=== PATIENT | female | born 1985 | race Caucasian/White ===

== ENCOUNTER 2019-01-28 07:48 | Inpatient (IN) ==
[2019-01-28] MEDS ORDERED: OXYTOCIN 30 UNITS/500 ML BAG IV PRN ×2 (08:18→15:23)
--- NOTE | 2019-01-28 08:25 | History & Physical Report ---
Date of Service January 28, 2019 Assessment & Plan (1) Normal labor: IUP at 40 5/7 weeks in labor Please see orders for further directions. History of Present Illness Primary Care Provider: NO PCP Patient is a 33 yo white female EDC 01/22/19 who presents at 40 5/7 weeks with bloody show & regular contractions. GBS (-). has been only complicated by post dates . blood type O negative. Allergies Allergy/AdvReac Type Severity Reaction Status Date / Time sunflower seed Allergy Severe ANAPHYLAXIS Verified 01/28/19 07:56 Sulfa (Sulfonamide Allergy Unknown . Verified 01/28/19 07:56 Antibiotics) Home Medications Home Medications Medication Instructions Recorded Confirmed Type [place]-3 1,000 mg PO DAILY 01/28/19 01/28/19 History PNV cmb#95-ferrous fumarate-FA 1 tab PO DAILY 01/28/19 01/28/19 History [] Vitamin D3 1,000 unit PO DAILY 01/28/19 01/28/19 History docusate sodium [Colace] 100 mg PO BID 01/28/19 01/28/19 History ferrous sulfate [iron] 325 mg PO DAILY 01/28/19 01/28/19 History Patient History Social History Preferred Language: Estonian Print Buyer Required: No Beliefs That Will Affect Care: None marital status: Current Living Situation: Spouse Other Information That Helps Us Care for You: No Feels Safe at Home: Yes Smoking Status: Never smoker Hx Alcohol Use: No Hx Substance Use: No Review of Systems All systems reviewed & are unremarkable except as noted in HPI & below Physical Exam Constitutional: WD/WN, vitals as above Respiratory: normal respiratory effort, lungs clear to auscultation Cardiovascular: RRR, no murmur, no edema Gastrointestinal (Abdomen): normal bowel sounds, soft, nontender, no hep atosplenomegaly Genitourinary: OB Exam Abdomen: + vertex and + regular contractions (every 2-4 minutes) Manual OB Exam: + cervical dilation 4 cm, + cervical effacement 100%, + station 0 and + amniotic fluid OB Exam Monitor Tracing: + external FHT monitor used, + external uterine monitor used, + category I and + normal FHT variability
[2019-01-28 09:32] LABS: Hematocrit (blood only) 35.3 % (37-47); Hemoglobin 12.7 g/dL (12.0-16.0); Mean Corpuscular Volume 91.5 fL (80-100); Mean Platelet Volume 11.6 fL (7.4-10.4); Platelet Count 92 K/uL (130-400); Platelet Estimate Decreased (Normal); RDW Standard Deviation 43.3 fL (36.4-46.3); Red Blood Count 3.86 M/uL (4.2-5.4); White Blood Count 9.61 K/uL (4.8-10.8)
--- NOTE | 2019-01-28 10:17 | Labor Progress Brief Note ---
Date of Service January 28, 2019 Subjective Change of shift note: The patient is a 33-year-old 1 para 0 with an EDC of 22 January by dates and first trimester ultrasound who was admitted at 40+ weeks gestational age in active labor. Patient states the contractions began in the evening of 27 January and increased in intensity. She presented this a.m. for labor evaluation. The patient had had a benign course. Her blood type is O- , antibody negative, she received RhoGam on 30 October, she is hepatitis B negative, she had a normal 1 hour Glucola x2, she had a negative cell free DNA screening, and she had a negative third trimester beta strep culture Assessment & Plan (1) Normal labor: - heart rate tracing category 1 -We will see response to uterine activity with rupture of membranes -May require labor augmentation -All questions answered to the patient Physical Exam Genitourinary: Cervix: 4 cm 100% -2 station, artificial rupture of membranes for clear fluid Results & Data Vital Signs (Past 12 Hours) Vital Signs Temp Pulse Resp BP 01/28/19 09:38 36.8 C 73 18 112/70
[2019-01-28] MEDS ORDERED: ePHEDrine sulfate 50 MG/ML AMP ONE (10:49)
[2019-01-28] MEDS ORDERED: fentaNYL citrate 100 MCG/2 ML VIAL ONE (10:49)
[2019-01-28] MEDS ORDERED: BUPIVACAINE 0.25% 30 ML VIAL ONE (10:49)
[2019-01-28] MEDS ORDERED: fentaNYL 2MCG/ML ROPIV 1.25MG/ML 100 ML BAG EPI ONE (10:50)
[2019-01-28] MEDS: LACTATED RINGER'S 1,000 ML IV PRN ×2 (11:06→11:58)
--- NOTE | 2019-01-28 12:22 | Anesthesiology Consultation ---
Date of Service January 28, 2019 Assessment & Plan Chart Review Chart Review: Acceptable Risk for Labor Epidural Consults Requested none History Height/Weight Height: 5 ft 4 in Weight: 69.57 kg Allergies Allergy/AdvReac Type Severity Reaction Status Date / Time sunflower seed Allergy Severe ANAPHYLAXIS Verified 01/28/19 07:56 Sulfa (Sulfonamide Allergy Unknown . Verified 01/28/19 07:56 Antibiotics) Medications Home Medications Medication Instructions Recorded Confirmed Last Taken [place]-3 1,000 mg PO DAILY 01/28/19 01/28/19 01/27/19 08:00 PNV cmb#95-ferrous fumarate-FA 1 tab PO DAILY 01/28/19 01/28/19 01/27/19 08:00 [] Vitamin D3 1,000 unit PO DAILY 01/28/19 01/28/19 01/27/19 08:00 docusate sodium [Colace] 100 mg PO BID 01/28/19 01/28/19 01/27/19 08:00 ferrous sulfate [iron] 325 mg PO DAILY 01/28/19 01/28/19 01/27/19 08:00 Active Medications Generic Name Dose Route Start Last Admin Trade Name Freq PRN Reason Stop Dose Admin Lactated Ringer's 1,000 mls @ 125 mls/hr 01/28/19 08:18 01/28/19 11:58 Lr IV 01/30/19 08:17 125 mls/hr .Q8H PRN Administration L&D Protocol Protocol Past Medical History Medical History Constipation chronic constipation- takes colace 100mg BID H/O wisdom tooth extraction removed in 2015 Social History Smoking Status: Never smoker Hx Alcohol Use: No Hx Substance Use: No substance use type: does not use Physical Exam Vital Signs Last Vital Signs Temp 36.7 C 01/28/19 11:05 Pulse 76 01/28/19 12:19 Resp 18 01/28/19 09:38 BP 112/63 01/28/19 12:19 Pulse Ox 94 01/28/19 12:16
[2019-01-28] MEDS ORDERED: DiphenhydrAMINE HCL 50 MG/ML VIAL IV PRN (12:23)
[2019-01-28] MEDS ORDERED: fentaNYL 2MCG/ML ROPIV 1.25MG/ML 100 ML BAG EPI PRN (12:23)
[2019-01-28] MEDS ORDERED: NALOXONE HCL 1 MG in SODIUM CHLORIDE 0.9% 1000ML 1,000 ML IV PRN (12:23)
[2019-01-28] MEDS ORDERED: NALOXONE HCL 0.4 MG/1 ML VIAL/CARP IV PRN (12:23)
[2019-01-28] MEDS ORDERED: NALBUPHINE HCL INJ 10 MG/ML AMP IV PRN (12:23)
[2019-01-28] MEDS ORDERED: ePHEDrine sulfate 50 MG/ML AMP IV PRN (12:23)
--- NOTE | 2019-01-28 14:22 | Labor Progress Brief Note ---
Date of Service January 28, 2019 Subjective Comfortable with epidural, feeling pressure with ctx's Assessment & Plan (1) Normal labor: - tracing Cat II - will begin 2nd stage Physical Exam Physical Exam: Cervix: complete/ROT/(+)1-(+)2 Results & Data Vital Signs (Past 12 Hours) Vital Signs Temp Pulse Pulse Resp BP BP Pulse Ox 01/28/19 14:16 75 96 01/28/19 14:11 74 98/57 L 97 01/28/19 14:06 77 95 01/28/19 14:01 74 95 01/28/19 14:00 16 01/28/19 13:56 71 92/53 L 95 01/28/19 13:51 74 96 01/28/19 13:46 73 95 01/28/19 13:41 69 100/63 96 01/28/19 13:36 69 107/63 96 01/28/19 13:31 67 107/55 L 96 01/28/19 13:30 16 01/28/19 13:26 69 95 01/28/19 13:25 67 100/59 L 01/28/19 13:21 76 111/57 L 96 01/28/19 13:16 80 96 01/28/19 13:15 85 110/60 01/28/19 13:11 78 96 01/28/19 13:10 69 114/62 01/28/19 13:06 71 96 01/28/19 13:05 70 107/62 01/28/19 13:01 69 96 01/28/19 13:00 66 111/63 01/28/19 12:58 36.6 C 16 01/28/19 12:56 64 98 01/28/19 12:55 67 103/61 01/28/19 12:51 77 97 01/28/19 12:50 64 101/58 L 01/28/19 12:46 73 98 01/28/19 12:45 71 108/64 01/28/19 12:41 69 97 01/28/19 12:39 66 110/64 01/28/19 12:36 77 104/64 97 01/28/19 12:31 74 96 01/28/19 12:30 16 01/28/19 12:26 84 96 01/28/19 12:23 78 111/57 L 01/28/19 12:21 83 109/59 L 95 06/04/19 12:19 76 112/63 01/28/19 12:17 81 112/63 01/28/19 12:16 79 94 01/28/19 12:15 78 108/59 L 01/28/19 12:13 78 108/58 L 01/28/19 12:11 85 113/65 01/28/19 12:06 76 93 01/28/19 12:01 71 95 01/28/19 11:56 83 95 01/28/19 11:51 86 94 01/28/19 11:46 72 96 01/28/19 11:41 84 94 01/28/19 11:36 83 97 01/28/19 11:31 81 98 01/28/19 11:26 77 96 01/28/19 11:21 79 98 01/28/19 11:16 73 94 01/28/19 11:11 77 95 01/28/19 11:06 83 96 01/28/19 11:05 36.7 C 01/28/19 11:02 71 94 01/28/19 11:01 72 95 01/28/19 10:56 70 97 01/28/19 10:55 71 120/67 01/28/19 09:38 36.8 C 73 18 112/70
[2019-01-28] MEDS ORDERED: ACETAMINOPHEN 325 MG TAB PO PRN (15:23)
[2019-01-28] MEDS ORDERED: DIPHTHERIA/TETANUS/PERTUSSIS 0.5 ML SYR/VIAL IM ONE (15:23)
[2019-01-28] MEDS ORDERED: SUPERCREAM 0.870% 15 GM JAR EXT PRN (15:23)
[2019-01-28] MEDS ORDERED: ACETAMINOPHEN W/CODEINE #3 1 TAB PO PRN (15:23)
[2019-01-28] MEDS ORDERED: HYDROCORTISONE ACETATE 25 MG SUPP PR PRN (15:23)
[2019-01-28] MEDS ORDERED: BENZOCAINE 20% AER SPR 82.5 GM CAN EXT PRN (15:23)
[2019-01-28 15:58] LABS: Base Excess Cord Arterial Bld -3.7 mEq/L (-9-1.8); CO2 Cord Arterial Blood 48 mmHg (39.1-73.5); HCO3 Cord Arterial Blood 23 mmol/L (19.7-28.5)
--- NOTE | 2019-01-28 19:38 | Anesthesia Procedure Note ---
Date of Service January 28, 2019 Anesthesia Post Epidural Note Vital Signs Vital Signs: Temp Pulse Pulse Resp BP BP Pulse Ox 01/28/19 18:20 36.5 C 78 20 113/68 01/28/19 17:41 91 H 115/60 01/28/19 17:27 88 126/58 L 01/28/19 17:11 93 H 112/55 L 01/28/19 16:56 85 114/60 01/28/19 16:41 97 H 106/60 01/28/19 16:26 93 H 104/58 L 01/28/19 16:11 77 104/55 L 01/28/19 15:57 72 96/53 L 01/28/19 15:44 78 92/53 L 01/28/19 15:26 82 118/57 L 01/28/19 15:11 75 115/62 01/28/19 14:56 86 123/75 95 01/28/19 14:52 83 85 L 01/28/19 14:51 106 H 92 01/28/19 14:46 198 H 91 01/28/19 14:41 77 127/75 94 01/28/19 14:40 85 85 L 01/28/19 14:36 82 95 01/28/19 14:31 36.5 C 87 16 97 01/28/19 14:30 20 01/28/19 14:28 87 85 L 01/28/19 14:27 104 H 101/64 01/28/19 14:26 106 H 94 01/28/19 14:21 77 96 01/28/19 14:16 75 96 01/28/19 14:11 74 98/57 L 97 01/28/19 14:06 77 95 01/28/19 14:01 74 95 01/28/19 14:00 16 01/28/19 13:56 71 92/53 L 95 01/28/19 13:51 74 96 01/28/19 13:46 73 95 01/28/19 13:41 69 100/63 96 01/28/19 13:36 69 107/63 96 01/28/19 13:31 67 107/55 L 96 01/28/19 13:30 16 01/28/19 13:26 69 95 01/28/19 13:25 67 100/59 L 01/28/19 13:21 76 111/57 L 96 01/28/19 13:16 80 96 01/28/19 13:15 85 110/60 01/28/19 13:11 78 96 01/28/19 13:10 69 114/62 01/28/19 13:06 71 96 01/28/19 13:05 70 107/62 01/28/19 13:01 69 96 01/28/19 13:00 66 111/63 01/28/19 12:58 36.6 C 16 01/28/19 12:56 64 98 01/28/19 12:55 67 103/61 01/28/19 12:51 77 97 01/28/19 12:50 64 101/58 L 01/28/19 12:46 73 98 01/28/19 12:45 71 108/64 01/28/19 12:41 69 97 01/28/19 12:39 66 110/64 01/28/19 12:36 77 104/64 97 01/28/19 12:31 74 96 01/28/19 12:30 16 01/28/19 12:26 84 96 01/28/19 12:23 78 111/57 L 01/28/19 12:21 83 109/59 L 95 01/28/19 12:19 76 112/63 01/28/19 12:17 81 112/63 01/28/19 12:16 79 94 01/28/19 12:15 78 108/59 L 01/28/19 12:13 78 108/58 L 01/28/19 12:11 85 113/65 01/28/19 12:06 76 93 01/28/19 12:01 71 95 01/28/19 11:56 83 95 01/28/19 11:51 86 94 01/28/19 11:46 72 96 01/28/19 11:41 84 94 01/28/19 11:36 83 97 01/28/19 11:31 81 98 01/28/19 11:26 77 96 01/28/19 11:21 79 98 01/28/19 11:16 73 94 01/28/19 11:11 77 95 01/28/19 11:06 83 96 01/28/19 11:05 36.7 C 01/28/19 11:02 71 94 01/28/19 11:01 72 95 01/28/19 10:56 70 97 01/28/19 10:55 71 120/67 01/28/19 09:38 36.8 C 73 18 112/70 Notes Mental Status: alert / awake / arousable Nausea / Vomiting: adequately controlled Pain: adequately controlled Airway Patency, RR, SpO2: stable & adequate BP & HR: stable & adequate Hydration State: stable & adequate Neuraxial Anesthesia: was administered and sensory block is resolving Anesthetic Complications: no major complications apparent and Pt Satisfied with anesthetic care Epidural: Removed without complications and With tip intact
[2019-01-28] MEDS: IBUPROFEN 600 MG TAB PO PRN (21:01)
[2019-01-28] MEDS: DOCUSATE SODIUM 100 MG CAP PO SCH (21:01)
--- NOTE | 2019-01-29 00:06 | Delivery Summary ---
DATE OF OPERATION: 01/28/2019 DELIVERY NOTE FINDINGS: Viable female with Apgars of 8 and 9. Baby delivered over an intact perineum with nuchal cord x1 reduced. Cord gases, cord blood samples obtained. Placenta delivered spontaneously. Midline laceration and second-degree periurethral laceration repaired with 4-0 Vicryl in routine fashion. ESTIMATED BLOOD LOSS: 300 mL. LABOR NOTE: The patient is a 33-year-old, 1, para 0 with an EDC of 01/22/2019 by dates and first trimester ultrasound who is admitted at 40+ weeks gestational age in active labor. The patient states her contractions began in the evening of 01/27/2019 and increased in intensity. She presented to Labor and Delivery this a.m. for labor evaluation. The patient has had a benign course. Her blood type O negative, antibody negative. She received RhoGAM on 10/30/2018, she is hepatitis B negative, she had a normal 1 hour Glucola x2, she had a negative cell free DNA screening, and a negative third trimester beta strep culture. Upon admission, the patient was 4 cm dilated, 100% effaced and 0 station. Tracing was category 1. Artificial rupture of membranes for clear fluid. Contractions increased in intensity and the patient requested and received an epidural anesthesia. Over the next several hours, she progressed to full dilatation and began her second stage. She pushed for approximately 20 minutes delivering the viable female . Nuchal cord x1 reduced on the perineum. Cord gases, cord blood samples obtained. Placenta was delivered spontaneously. Inspection of the perineum showed a midline second-degree laceration and a periurethral laceration, both of those were repaired with 4-0 Vicryl in routine fashion. Estimated blood loss was 300 mL. Sponge and needle count was correct. I attest to the content of the Intraoperative Record and any orders documented therein. Any exception s are noted below.
[2019-01-29] MEDS: IBUPROFEN 600 MG TAB PO PRN ×3 (06:35→21:09)
--- NOTE | 2019-01-29 07:03 | Obstetrical Progress Note ---
Date of Service <Heladio Burt MD - Last Filed: 01/29/19 07:03> January 29, 2019 Assessment & Plan <Heladio Burt MD - Last Filed: 01/29/19 07:03> (1) Vaginal delivery: Isha Butler a 33-year-old, with an EDC of 01/22/2019 who was admitted at 40+ weeks gestational age in active labor. She is s/p PPD#1 - Feels well today. Eating well, voiding well, ambulating well. - Pain well controlled with ibuprofen 600mg Q4H PRN. - . Baby is latching well and she has not had any difficulties with feeds. - Routine care - After discharge will have [address] Jhaveri. Subjective <Heladio Burt MD - Last Filed: 01/29/19 07:03> Ambulation: ambulating normally Voiding: no voiding problems Passing Gas:: Yes Diet Tolerance:: regular diet Lochia:: Moderate Feeding Type:: breast feeding Current Pain Level(1-10): 1 Review of Systems Denies fever, chills, sweats Denies shortness of breath, difficulty breathing, chest pain, palpitations, c hest pressure. Denies breast pain. Denies dysuria. Denies headache. Physical Exam <Heladio Burt MD - Last Filed: 01/29/19 07:03> Vital Signs (Past 24 Hours) Last Vital Signs Temp 36.6 C 01/29/19 03:20 Pulse 69 01/29/19 03:20 Resp 18 01/29/19 03:20 BP 95/59 L 01/29/19 03:20 Pulse Ox 95 01/28/19 14:56 General: Alert, oriented. No acute distress. Cardiac: Regular rate and rhythm, no murmurs/rubs/gallops. Respiratory: Clear to auscultation anterior and posteriorly, no wheezes/rales/rhonchi. No increased work of breathing. Symmetrical chest rise. No respiratory distress. Abdomen: Soft, nontender, nondistended. Bowel sounds present. Uterus: Uterine fundus firm, palpable at umbilicus. Lower Extremities: No lower extremity edema or swelling. No deep calf pain. Desiree's negative bilaterally. <Timothy Jhaveri Jr, MD, FACOG - Last Filed: 01/29/19 07:06> Co-Signing Physician Notes Resident Physician Supervision Note: I was present with Dr. Burt during the history and exam. I discussed the case with the resident and agree with the findings and plan as documented in the note. Any exceptions or clarifications are listed here: Reviewed delivery with the patient Documented By: Timothy Jhaveri Jr, MD, FACOG Resident Activity Tracking <Heladio Burt MD - Last Filed: 01/29/19 07:03> Resident Involvement: Resident Care Provided Care Provided: Adult Hospital Medicine
[2019-01-29] MEDS: DOCUSATE SODIUM 100 MG CAP PO SCH ×2 (08:04→21:09)
[2019-01-29] MEDS: PRENATAL VITAMIN 1 TAB PO SCH (08:04)
[2019-01-29] MEDS ORDERED: FERROUS SULFATE 325 MG TAB PO SCH (09:00)
[2019-01-29] MEDS: BISACODYL 5 MG TABEC PO SCH ×2 (21:09→21:12)
[2019-01-30] MEDS: IBUPROFEN 600 MG TAB PO PRN ×2 (04:23→08:31)
--- NOTE | 2019-01-30 06:43 | Obstetrical Progress Note ---
Date of Service <Heladio Burt MD - Last Filed: 01/30/19 06:43> January 30, 2019 Assessment & Plan <Heladio Burt MD - Last Filed: 01/30/19 06:43> (1) Vaginal delivery: Isha Butler a 33-year-old, with an EDC of 01/22/2019 who was admitted at 40+ weeks gestational age in active labor. She is s/p PPD#2 - Feels well today. Eating well, voiding well, ambulating well. - Pain well controlled with ibuprofen 600mg Q4H PRN. - . Baby is latching well and she has not had any difficulties with feeds. - Routine care - After discharge will have [address] Jhaveri. Subjective <Heladio Burt MD - Last Filed: 01/30/19 06:43> Ambulation: ambulating normally Voiding: no voiding problems Passing Gas:: Yes Diet Tolerance:: regular diet Lochia:: Small Current Pain Level(1-10): 0 Review of Systems Denies fever, chills, sweats Denies shortness of breath, difficulty breathing, chest pain, palpitations, chest pressure. Denies breast pain. Denies dysuria. Denies headache. Physical Exam <Heladio Burt MD - Last Filed: 01/30/19 06:43> Vital Signs (Past 24 Hours) Last Vital Signs Temp 36.6 C 01/29/19 23:10 Pulse 69 01/29/19 23:10 Resp 18 01/29/19 23:10 BP 99/60 L 01/29/19 23:10 Pulse Ox 98 01/29/19 23:10 General: Alert, oriented. No acute distress. Cardiac: Regular rate and rhythm, no murmurs/rubs/gallops. Respiratory: Clear to auscultation anterior and posteriorly, no wheezes/rales/rhonchi. No increased work of breathing. Symmetrical chest rise. No respiratory distress. Abdomen: Soft, nontender, nondistended. Bowel sounds present. Uterus: Uterine fundus firm, palpable 1-2cm below umbilicus. Lower Extremities: No lower extremity edema or swelling. No deep calf pain. Desiree's negative bilaterally. <Alexis Gupta MD - Last Filed: 02/03/19 07:19> Co-Signing Physician Notes Patient seen and agree with the above findings and plan Resident Activity Tracking <Heladio Burt MD - Last Filed: 01/30/19 06:43> Resident Involvement: Resident Care Provided Care Provided: Adult Hospital Medicine
[2019-01-30 07:03] LABS: Hematocrit (blood only) 27.9 % (37-47); Hemoglobin 9.7 g/dL (12.0-16.0)
[2019-01-30] MEDS: DOCUSATE SODIUM 100 MG CAP PO SCH (08:29)
[2019-01-30] MEDS: PRENATAL VITAMIN 1 TAB PO SCH (08:29)
== END 2019-01-30 14:00 | disposition home or self-care (01) | DRG 807 ==
LOC: OPB 07:48 → 4S1 07:53 → 4S2 18:31

== ENCOUNTER 2020-12-06 23:53 | Inpatient (IN) ==
[2020-12-07] MEDS ORDERED: OXYTOCIN 30 UNITS/500 ML BAG IV PRN ×2 (00:30→08:45)
--- NOTE | 2020-12-07 00:37 | History & Physical Report ---
Date of Service December 07, 2020 Assessment & Plan (1) Normal labor: admit, check covid. expectant management. Patient desires unmedicated delivery. fetus category one.. anticipate . History of Present Illness Chief Complaint: contractions Primary Care Provider: Sami Duncan, ELLEN, SKYLA Patient is a 35yowf with iup at 40 2/7 weeks who calls with contractions and bloody show. Notes less than 10 min apart but still irregular. no lof. +fm. The has been uncomplicated. labs--O-/ab-/ri/rprnr/hiv-/hepb-/gc/ct-/ cf/sma neg previous / low risk panorama/gbs neg./ 2 hr gtt x 2 nl Allergies Allergy/AdvReac Type Severity Reaction Status Date / Time sunflower seed Allergy Severe ANAPHYLAXIS Verified 12/06/20 13:41 Sulfa (Sulfonamide Allergy Unknown . Verified 12/06/20 13:41 Antibiotics) Home Medications Medication Instructions Recorded Confirmed Type PNV cmb#95-ferrous fumarate-FA 1 tab PO DAILY 01/28/19 12/06/20 History [] docusate sodium [Colace] 100 mg PO BID 01/28/19 12/06/20 History cholecalciferol (vitamin D3) 50 2,000 units PO DAILY 04/07/19 12/06/20 History mcg (2,000 unit) capsule omega-3 fatty acids PO 08/16/20 12/06/20 History ferrous sulfate 325 mg PO .every other day 09/29/20 12/06/20 History Patient History Medical History (Updated 12/07/20 @ 00:42 by Mirna Eubanks MD, FACOG) Breast mass in female Constipation chronic constipation- takes colace 100mg BID History of chicken pox Surgical History H/O wisdom tooth extraction removed in 2015 Family History Grandfather (Paternal) Diabetes Prostate cancer Father Kidney stones Anxiety Hypertension Grandfather (Maternal) Stroke Atrial fibrillation Denies family history of Cervical cancer Ovarian cancer Myocardial infarction Breast cancer Colorectal cancer Uterine cancer Social History Smoking Status: Never smoker Hx Alcohol Use: Yes Alcohol type: wine Alcohol Intake Frequency: 2-3 x/Week Hx Substance Use: No Preferred Language: Bel[place]an Communication Ability: Effective Visual Impairment: No Limitations Hearing Ability: Normal [employer] Specialist Required: No Beliefs That Will Affect Care: None marital status: marital status details: Evaristo Butler (35) [phone] Current Living Situation: Spouse and Family Current Living Situation Comment: lives with spouse, daughter, dogs current occupational status: employed 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 Feels Safe at Home: Yes Safety Concerns: Feels Safe At This Time Childhood Exposure to Second-Hand Smoke: No Dental Care, Regularly: Yes Physical Activity Frequency: 3-4 Times per Week Seatbelt Use: always Sunscreen Use: Yes Assistive Devices: None OB History 2019--term, [employer] WORK[employer] History noncontributory Physical Exam Constitutional: WD/WN, vitals as above Gastrointestinal (Abdomen): soft, gravid, nt Psychiatric: A+Ox3, euthymic affect Genitourinary: cx--5/70/-2 per nursing toco--q 2-5 min efm--130s with mod variability, no accels, no decels Results & Data ([facility]) Vital Signs (Past 12 Hours) Vital Signs Temp Pulse Resp BP 12/07/20 00:10 36.7 C 18 12/07/20 00:05 77 116/66 Code Status & VTE Plan VTE Prophylaxis Plan VTE Prophylaxis will be ordered: No Coding Level of Care Code None Diagnoses Normal labor O80; Z37.9
[2020-12-07 01:07] LABS: Hematocrit (blood only) 32.8 % (37-47); Hemoglobin 11.9 g/dL (12.0-16.0); Mean Corpuscular Hemoglobin 32.6 pg (25-34); Mean Corpuscular Hgb Conc 36.3 g/dL (32-36); Mean Corpuscular Volume 89.9 fL (80-100); Mean Platelet Volume 11.4 fL (7.4-10.4); Platelet Count 104 K/uL (130-400); RDW Coefficient of Variation 12.7 % (11.5-14.5); Red Blood Count 3.65 M/uL (4.2-5.4); White Blood Count 9.12 K/uL (4.8-10.8)
[2020-12-07] MEDS: LACTATED RINGER'S 1,000 ML IV PRN ×2 (01:46→02:49)
[2020-12-07] MEDS ORDERED: SODIUM CHLORIDE 0.9% INJ 10 ML VIAL ONE (01:54)
[2020-12-07] MEDS ORDERED: ePHEDrine sulfate 50 MG/ML AMP ONE (01:54)
[2020-12-07] MEDS ORDERED: BUPIVACAINE 0.25% 30 ML VIAL ONE (01:54)
[2020-12-07] MEDS ORDERED: fentaNYL 2MCG/ML ROPIVACAINE 1.25MG/ML 100 ML BAG EPI ONE (01:55)
[2020-12-07] MEDS ORDERED: fentaNYL citrate 100 MCG/2 ML VIAL ONE (01:55)
--- NOTE | 2020-12-07 02:00 | Anesthesiology Consultation ---
Date of Service December 07, 2020 Assessment & Plan (1) Encounter for pre-operative examination: Chart Review Chart Review: Acceptable Risk for Labor Epidural History Height/Weight Height: 5 ft 4 in Weight: 68.946 kg Allergies Allergy/AdvReac Type Severity Reaction Status Date / Time sunflower seed Allergy Severe ANAPHYLAXIS Verified 12/06/20 13:41 Sulfa (Sulfonamide Allergy Unknown . Verified 12/06/20 13:41 Antibiotics) Medications Home Medications Medication Instructions Recorded Confirmed Last Taken docusate sodium [Colace] 100 mg PO BID 01/28/19 12/07/20 12/06/20 20:00 cholecalciferol (vitamin D3) 50 2,000 units PO DAILY 04/07/19 12/07/20 12/06/20 20:00 mcg (2,000 unit) capsule ferrous sulfate 325 mg PO DAILY 12/07/20 12/07/20 12/06/20 20:00 omega-3 fatty acids 1 cap PO DAILY 12/07/20 12/07/20 12/06/20 20:00 qjiinmnn-mzj-Hu-FA 1 tab PO DAILY 12/07/20 12/07/20 Unknown [] Active Medications Generic Name Dose Route Start Last Admin Trade Name Freq PRN Reason Stop Dose Admin Lactated Ringer's 1,000 mls @ 125 mls/hr 12/07/20 00:30 12/07/20 01:46 Lr IV 12/09/20 00:29 125 mls/hr .Q8H PRN Administration L&D Protocol Protocol Past Medical History Medical History (Updated 12/07/20 @ 02:00 by Humble Dao MD) Breast mass in female Constipation chronic constipation- takes colace 100mg BID History of chicken pox Past Family History Family History Grandfather (Paternal) Diabetes Prostate cancer Father Kidney stones Anxiety Hypertension Grandfather (Maternal) Stroke Atrial fibrillation Denies family history of Cervical cancer Ovarian cancer Myocardial infarction Breast cancer Colorectal cancer Uterine cancer Past Surgical History Surgical History H/O wisdom tooth extraction removed in 2016 Social History Smoking Status: Never smoker Hx Alcohol Use: Yes Alcohol type: wine Hx Substance Use: No substance use type: does not use Physical Exam Vital Signs Last Vital Signs Temp 36.7 C 12/07/20 00:10 Pulse 77 12/07/20 00:05 Resp 18 12/07/20 00:10 BP 116/66 12/07/20 00:05 Testing Laboratory Results 12/07/20 00:48
[2020-12-07] MEDS ORDERED: ONDANSETRON INJ 2 MG/ML 2 ML VIAL IV PRN (02:41)
[2020-12-07] MEDS ORDERED: fentaNYL 2MCG/ML ROPIVACAINE 1.25MG/ML 100 ML BAG EPI PRN (02:41)
[2020-12-07] MEDS ORDERED: NALOXONE HCL 0.4 MG/1 ML VIAL/CARP IV PRN (02:41)
[2020-12-07] MEDS ORDERED: NALOXONE HCL 1 MG in SODIUM CHLORIDE 0.9% 1000ML 1,000 ML IV PRN (02:41)
[2020-12-07] MEDS ORDERED: ePHEDrine sulfate 50 MG/ML AMP IV PRN (02:41)
--- NOTE | 2020-12-07 04:12 | Labor Progress Brief Note ---
Date of Service December 07, 2020 Subjective comfortable Assessment & Plan (1) Normal labor: Admission and Anticipated Discharge Date Admission Date: December 07, 2020 begin pushing when feels pressure. anticipate . fetus reassuring. Physical Exam Constitutional: WD/WN, vitals as above Psychiatric: A+Ox3, euthymic affect Genitourinary: cx--c/c/+1 arom--clear toco--q2-4min efm--130s with mod variability, accels to 160s, no decels Results & Data ([facility]) Vital Signs (Past 12 Hours) Vital Signs Temp Pulse Resp BP Pulse Ox 12/07/20 04:08 73 100 12/07/20 04:07 80 106/57 L 12/07/20 04:03 72 94 12/07/20 03:58 65 98 12/07/20 03:53 77 96 12/07/20 03:52 69 96/52 L 12/07/20 03:48 71 99 12/07/20 03:43 75 95 12/07/20 03:42 70 91 12/07/20 03:38 64 95 12/07/20 03:37 64 87/49 L 12/07/20 03:33 64 96 12/07/20 03:28 69 96 12/07/20 03:23 66 97 12/07/20 03:20 65 90/51 L 12/07/20 03:18 68 99 12/07/20 03:13 72 98 12/07/20 03:09 74 92 12/07/20 03:08 74 98 12/07/20 03:06 73 97/50 L 12/07/20 03:03 71 98 12/07/20 03:01 18 12/07/20 03:00 18 12/07/20 02:58 83 99 12/07/20 02:55 18 12/07/20 02:53 79 95 12/07/20 02:52 78 92 12/07/20 02:50 18 12/07/20 02:49 80 104/53 L 12/07/20 02:48 79 101/51 L 97 12/07/20 02:46 81 87/50 L 12/07/20 02:45 18 12/07/20 02:43 91 H 89/48 L 97 12/07/20 02:41 109 H 95/52 L 12/07/20 02:40 18 12/07/20 02:39 92 H 94/51 L 12/07/20 02:38 86 95 12/07/20 02:37 83 93/52 L 94 12/07/20 02:35 72 18 91/55 L 12/07/20 02:33 76 95 12/07/20 02:32 78 96/61 L 12/07/20 02:30 36.7 C 79 18 93 12/07/20 02:28 80 94 12/07/20 02:25 85 94 12/07/20 02:23 78 95 12/07/20 02:18 88 94 12/07/20 00:10 36.7 C 18 12/07/20 00:05 77 116/66 Coding Level of Care Code None Diagnoses Normal labor O80; Z37.9
[2020-12-07] MEDS ORDERED: LIDOCAINE HCL 1% 20 ML VIAL ONE (04:55)
[2020-12-07] MEDS ORDERED: ACETAMINOPHEN 325 MG TAB PO PRN (05:04)
[2020-12-07] MEDS ORDERED: oxyCODONE/ACETAMINOPHEN 5mg/325mg TAB PO PRN (05:04)
--- NOTE | 2020-12-07 07:16 | Anesthesia Procedure Note ---
Date of Service December 07, 2020 Anesthesia Post Epidural Note Vital Signs Vital Signs: Temp Pulse Resp BP Pulse Ox 36.7 C 142 H 18 113/63 89 L 12/07/20 04:45 12/07/20 06:49 12/07/20 06:15 12/07/20 06:49 12/07/20 04:53 Notes Mental Status: alert / awake / arousable and participated in evaluation Nausea / Vomiting: adequately controlled Pain: adequately controlled Airway Patency, RR, SpO2: stable & adequate BP & HR: stable & adequate Hydration State: stable & adequate Neuraxial Anesthesia: was administered and sensory block resolved Anesthetic Complications: no major complications apparent and Pt Satisfied with anesthetic care Epidural: Removed without complications and With tip intact Notes: .Epidural site clean, dry and intact. No signs of edema, erythema or bruising at insertion site. Pt instructed to request anesthesia if she has residual lower extremity numbness or if she develops lower extremity pain or weakness, back pain or headache.
[2020-12-07] MEDS ORDERED: HYDROCORTISONE ACETATE 25 MG SUPP PR PRN (08:45)
[2020-12-07] MEDS ORDERED: bisacodyL 10 MG SUPP PR PRN (08:45)
[2020-12-07] MEDS ORDERED: SUPERCREAM 0.870% 15 GM JAR EXT PRN (08:45)
[2020-12-07] MEDS ORDERED: BENZOCAINE 20% AER SPR 82.5 GM CAN EXT PRN (08:45)
[2020-12-07] MEDS ORDERED: DIPHTHERIA/TETANUS/PERTUSSIS 0.5 ML SYR/VIAL IM ONE (08:45)
[2020-12-07] MEDS: DOCUSATE SODIUM 100 MG CAP PO SCH ×2 (08:55→19:36)
[2020-12-07] MEDS: IBUPROFEN 600 MG TAB PO PRN ×3 (08:55→19:36)
[2020-12-07] MEDS: PRENATAL VITAMIN 1 TAB PO SCH (08:55)
[2020-12-08] MEDS: IBUPROFEN 600 MG TAB PO PRN ×3 (02:48→12:28)
--- NOTE | 2020-12-08 06:51 | Obstetrical Progress Note ---
Date of Service December 08, 2020 Assessment & Plan (1) Encounter for care and examination after delivery: satisfactory course continue current care plan Subjective Ambulation: ambulating normally Voiding: no voiding problems Passing Gas:: Yes Diet Tolerance:: regular diet Lochia:: Small Feeding Type:: breast feeding Physical Exam Constitutional WD/WN, vitals as above Psychiatric A+Ox3, euthymic affect Genitourinary OB Exam Abdomen: + fundal height Fundus: + firm and + relation to umbilicus (2 below U) Results & Data ([facility]) Vital Signs (Past 12 Hours) Vital Signs Temp Pulse Resp BP 12/08/20 02:50 97.9 F 64 18 90/56 L 12/08/20 00:05 98.1 F 61 18 94/58 L 12/07/20 19:30 98.4 F 71 18 100/55 L
[2020-12-08] MEDS: DOCUSATE SODIUM 100 MG CAP PO SCH (08:34)
[2020-12-08] MEDS: PRENATAL VITAMIN 1 TAB PO SCH (08:34)
[2020-12-08] MEDS ORDERED: bisacodyL 5 MG TABEC PO SCH (20:00)
--- NOTE | 2020-12-09 12:08 | Delivery Summary ---
Vaginal Delivery Summary Date of Service December 07, 2020 Pre-operative Diagnosis: at term active labor Post-operative Diagnosis: same Procedure: epidural arom small first degree laceration EBL: 300cc Anesthesia: epidural Procedure: The patient pushed for about two contractions to deliver a viable . The nose and mouth were bulb suctioned on the perineum and the rest of the was then delivered without difficulty. The baby was vigorous. The nose and mouth were again bulb suctioned and the was placed in the maternal abdomen for drying and attention. Cord was clamped and cut at one minute of life. Cord blood and segment obtained. Placenta delivered spontaneous, intact with a three vessel cord. Cervix/sulci/rectum were intact. A first degree perineal laceration was repaired in the normal standard fashion. Hemostasis obtained with dilute pitocin and fundal massage. Mother and baby doing well at the end of the delivery.
== END 2020-12-08 13:30 | disposition home or self-care (01) | DRG 807 ==
LOC: OPB 23:53 → 4S1 23:53 → 4S2 12-07 07:30

== ENCOUNTER 2023-07-04 21:11 | Inpatient (IN) ==
[2023-07-04] MEDS ORDERED: PENICILLIN G POTASSIUM 6 MU in DEXTROSE 5% 250 ML IV STA (22:03)
[2023-07-04] MEDS ORDERED: LIDOCAINE 1% LOCAL 20 ML VIAL INFIL PRN (22:03)
[2023-07-04] MEDS ORDERED: OXYTOCIN 30 UNITS/500 ML BAG IV PRN (22:03)
--- NOTE | 2023-07-04 22:24 | History & Physical Report ---
Date of Service July 04, 2023 Assessment & Plan (1) Group B Streptococcus carrier, antepartum: Plan: 38 yo at 39 5/7 wga presents in labor VSS Fetus cat 1 Labor - manage expectantly GBS+ epidural prn History of Present Illness Chief Complaint: Ctx Primary Care Provider: Sami Duncan III, SKYLA 38 yo at 39 5/7 wga presents w/ ctx increasing in frequency and intensity, about 6min apart. +FM; denies LOF. 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 Hx: G1 2019 at 40 wks G2 2020 at 40 wks G3 2021 SAB G4 current q28d cycles denies hx stis Allergies Allergy/AdvReac Type Severity Reaction Status Date / Time sunflower seed Allergy Severe ANAPHYLAXIS Verified 07/03/23 12:59 Sulfa (Sulfonamide Allergy Unknown Rash Verified 07/03/23 12:59 Antibiotics) Home Medications Medication Instructions Recorded Confirmed Type cholecalciferol (vitamin D3) 50 2,000 units PO DAILY 04/07/19 07/04/23 History mcg (2,000 unit) capsule akcxnatz-[id number]-[id number] 1 mg 1 tab PO DAILY 12/07/20 07/04/23 History tablet docusate sodium [Colace] 1 tab PO DAILY PRN Constipation 12/06/22 07/04/23 History Patient History Medical History Normal labor History of chicken pox Breast mass in female biopsy 01/13 benign Constipation chronic constipation- takes colace 100mg BID Surgical History H/O wisdom tooth extraction removed in 2015 Family History Grandfather (Paternal) Diabetes Prostate cancer Father Kidney stones Anxiety Hypertension Grandfather (Maternal) Stroke Atrial fibrillation Denies family history of Cervical cancer Ovarian cancer Myocardial infarction Breast cancer Colorectal cancer Uterine cancer Social History Smoking Status: Never smoker Second Hand Exposure: No; Do You Dip or Chew Tobacco: No; Hx Alcohol Use: No Hx Substance Use: No Preferred Language: Uzbek Communication Ability: Effective Visual Impairment: No Limitations Hearing Ability: Normal Light Fixture Servicer Required: No Beliefs That Will Affect Care: None marital status: marital status details: Evaristo Butler [phone] Current Living Situation: Spouse and Family Current Living Situation Comment: lives with spouse, 2 daughters, dogs current occupational status: employed 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 How many Children do You have: 2 Other Information That Helps Us Care for You: No Feels Safe at Home: Yes Safety Concerns: Feels Safe At This Time Childhood Exposure to Second-Hand Smoke: No Diet: regular caffeine: Yes during the past year weight has: remained stable Dental Care, Regularly: Yes Physical Activity Frequency: Daily Seatbelt Use: always Sunscreen Use: Yes Assistive Devices: Contacts and Glasses Physical Exam Genitourinary: OB Exam Monitor Tracing: + external FHT monitor used, + external uterine monitor used (q2-6) and + category I (120/mod/+accel/-decel) SVE 4/60/-2 by nursing, bulging bag by nursing Results & Data Vital Signs (Past 12 Hours) Vital Signs Temp Pulse Resp BP 07/04/23 21:38 83 102/67 07/04/23 21:38 97.3 F L 18 Laboratory Results OB Labs: Blood Type O Negative 12/21/22 Antibody Screen NEGATIVE 04/18/23 Hemoglobin 11.8 g/dl (12.0-16.0) L 04/12/23 Hematocrit 34.0 % (37.0-47.0) L 04/12/23 Mean Corpuscular Volume 86.1 fL (80.0-100.0) 12/21/22 Platelet Count 188 K/uL (130-400) 12/21/22 Rubella IgG Antibody Immune (Immune) 12/21/22 Rapid Plasma Reagin Nonreactive (Nonreactive) 12/21/22 Hepatitis B Surface Antigen Neg (Neg) 05/10/20 Hepatitis B Surface Antigen. NON-REACTIVE (NON-REACTIVE) 12/21/22 Hepatitis C Antibody (EIA) NON-REACTIVE (NON-REACTIVE) 12/21/22 HIV (1&2) Ab and P24 Ag, 4th Gener Neg (Neg) 05/10/20 HIV (1&2) Ag and Ab Confirmation NON-REACTIVE (NON-REACTIVE) 12/21/22 Glucose 1 Hour 50 gm Load 177 mg/dl (70-130) H 01/19/23 Maternal Serum Alpha Fetoprotein 35.3 ng/mL 01/19/23 OB Optional Labs: Chlamydia trachomatis RNA Not Detected (NotDetected) 12/08/22 Neisseria gonorrhoeae RNA Not Detected (NotDetected) 12/08/22 Thyroid Stimulating Hormone (TSH) 0.767 uIu/ml (0.300-4.500) 12/06/21 Alpha Fetoprotein Triple Screen SEE NOTE 01/19/23 Labs Reviewed: cf/sma neg prior to her first --[facility] cfdna-low risk--mln afp neg--[facility] passed 16 week 2 hr gtt--[facility] GBS+ Diagnostic Findings ant plac Coding Level of Care Code None Diagnoses Group B Streptococcus carrier, antepartum O99.820
[2023-07-04] MEDS: LACTATED RINGER'S 1,000 ML IV PRN (22:33)
[2023-07-04 22:42] LABS: Hemoglobin 12.3 g/dl (12.0-16.0); Mean Corpuscular Hemoglobin 32.2 pg (25.0-34.0); Mean Corpuscular Hgb Conc 35.1 g/dL (32.0-36.0); Mean Corpuscular Volume 91.6 fL (80.0-100.0); Mean Platelet Volume 11.9 fL (9.4-12.4); Platelet Count 127 K/uL (130-400); RDW Coefficient of Variation 12.4 % (11.5-14.5); RDW Standard Deviation 40.8 fL (36.4-46.3); Red Blood Count 3.82 M/uL (4.20-5.40); White Blood Count 9.08 K/ul (4.8-10.8)
[2023-07-05] MEDS ORDERED: fentANYL 2 MCG/ML BUPIVacaine 0.125%-NSS 100ML BAG ONE (00:10)
[2023-07-05] MEDS ORDERED: SODIUM CHLORIDE 0.9% PF INJ 10 ML VIAL ONE (00:10)
[2023-07-05] MEDS ORDERED: ePHEDrine sulfate 50 MG/ML AMP ONE (00:10)
[2023-07-05] MEDS ORDERED: BUPIVACAINE 0.25% PF 30 ML VIAL ONE (00:10)
[2023-07-05] MEDS ORDERED: fentaNYL citrate PF 100 MCG/2 ML VIAL ONE (00:10)
[2023-07-05] MEDS ORDERED: LIDOCAINE 2%/EPINEPHRINE 1:200,000 20 ML PF ONE (00:10)
--- NOTE | 2023-07-05 00:19 | Anesthesiology Consultation ---
Date of Service July 05, 2023 Assessment & Plan Chart Review Chart Review: Acceptable Risk for Labor Epidural Consults Requested none ASA ASA2 Proposed Anesthesia Anesthesia Type: Labor Epidural Risk / Benefits Reviewed With: PT / POA / Parent / Guardian, Accepts Plan and Informed Consent Obtained History Height/Weight Height: 5 ft 4 in Weight: 70.76 kg Allergies Allergy/AdvReac Type Severity Reaction Status Date / Time sunflower seed Allergy Severe ANAPHYLAXIS Verified 07/03/23 12:59 Sulfa (Sulfonamide Allergy Unknown Rash Verified 07/03/23 12:59 Antibiotics) Medications Home Medications Medication Instructions Recorded Confirmed Last Taken cholecalciferol (vitamin D3) 50 2,000 units PO DAILY 04/07/19 07/04/23 07/04/23 mcg (2,000 unit) capsule tokiqsfx-gch-Sh-FA 1 mg 1 tab PO DAILY 12/07/20 07/04/23 07/04/23 tablet docusate sodium [Colace] 1 tab PO DAILY PRN Constipation 12/06/22 07/04/23 Unknown Active Medications Generic Name Dose Route Start Last Admin Trade Name Dadaq PRN Reason Stop Dose Admin Lactated Ringer's 1,000 mls @ 125 mls/hr 07/04/23 22:03 07/04/23 22:33 Lr IV 07/06/23 22:02 125 mls/hr .Q8H PRN Administration L&D Protocol Protocol Past Medical History Medical History Normal labor History of chicken pox Breast mass in female biopsy 01/13 benign Constipation chronic constipation- takes colace 100mg BID Exercise / Class Metabolic Activity II 4-5 Yardwork/Stairs/Walk up hill Past Family History Family History Grandfather (Paternal) Diabetes Prostate cancer Father Kidney stones Anxiety Hypertension Grandfather (Maternal) Stroke Atrial fibrillation Denies family history of Cervical cancer Ovarian cancer Myocardial infarction Breast cancer Colorectal cancer Uterine cancer Past Surgical History Surgical History H/O wisdom tooth extraction removed in 2016 Past Anesthesia History No Hx of Anesthesia Complications and No Family Hx of Anesthesia Complications History of PONV No Hx of PONV and No Hx of Motion Sickness Social History Smoking Status: Never smoker Do You Dip or Chew Tobacco: No Hx Alcohol Use: No Alcohol type: wine Hx Substance Use: No substance use type: does not use Physical Exam Vital Signs Last Vital Signs Temp 97.3 F L 07/04/23 21:38 Pulse 81 07/05/23 00:15 Resp 18 07/04/23 21:38 BP 102/67 07/04/23 21:38 Pulse Ox 99 07/05/23 00:15 ENMT Mouth: no dentition abnormality Thyromental Distance: > or= 3.5 Finger Breadths Mallampati Class: II Neck normal visual inspection Respiratory normal respiratory effort Auscultation: lungs clear to auscultation bilaterally Cardiovascular Rate/Rhythm: regular rate and regular rhythm Testing Laboratory Results 07/04/23 22:26
[2023-07-05] MEDS ORDERED: diphenhydrAMINE 50 MG/ML VIAL IV PRN (00:36)
[2023-07-05] MEDS ORDERED: LIDOCAINE 2%/EPINEPHRINE 1:200,000 20 ML PF EPI STA (00:36)
[2023-07-05] MEDS ORDERED: fentaNYL citrate PF 100 MCG/2 ML VIAL EPI PRN (00:36)
[2023-07-05] MEDS ORDERED: NALOXONE HCL 0.4 MG/1 ML VIAL/CARP IV PRN (00:36)
[2023-07-05] MEDS ORDERED: SODIUM CHLORIDE 0.9% PF INJ 10 ML VIAL EPI PRN (00:36)
[2023-07-05] MEDS ORDERED: ONDANSETRON INJ 2 MG/ML 2 ML VIAL IV PRN (00:36)
[2023-07-05] MEDS ORDERED: ROPIVACAINE 0.5% PF 5 MG/ML 20 ML VIAL EPI PRN (00:36)
[2023-07-05] MEDS ORDERED: fentaNYL citrate PF 100 MCG/2 ML VIAL EPI STA (00:36)
[2023-07-05] MEDS ORDERED: fentANYL 2 MCG/ML BUPIVacaine 0.125%-NSS 100ML BAG EPI PRN (00:36)
[2023-07-05] MEDS ORDERED: NALBUPHINE HCL 5 MG in SYRINGE 0 ML IV PRN (00:36)
[2023-07-05] MEDS ORDERED: LIDOCAINE 2% MPF LOCAL 5 ML VIAL EPI PRN (00:36)
[2023-07-05] MEDS ORDERED: BUPIVACAINE 0.25% PF 30 ML VIAL EPI PRN (00:36)
[2023-07-05] MEDS ORDERED: NALOXONE HCL 1 MG in SODIUM CHLORIDE 0.9% 1,000 ML IV PRN (00:36)
[2023-07-05] MEDS ORDERED: BUPIVACAINE 0.25% PF 30 ML VIAL EPI STA (00:36)
[2023-07-05] MEDS ORDERED: SODIUM CHLORIDE 0.9% PF INJ 10 ML VIAL EPI STA (00:36)
[2023-07-05] MEDS ORDERED: ePHEDrine sulfate 50 MG/ML AMP IV PRN (00:36)
[2023-07-05] MEDS ORDERED: PENICILLIN G POTASSIUM 3 MU in DEXTROSE 5% 100 ML IV PRN (01:03)
[2023-07-05] MEDS: LACTATED RINGER'S 1,000 ML IV PRN (02:26)
--- NOTE | 2023-07-05 02:30 | Anesthesia Procedure Note ---
Date of Service July 05, 2023 Anesthesia Epidural Re-Dose Vital Signs Temp Pulse Resp BP Pulse Ox 97.3 F L 77 18 92/53 L 98 07/04/23 21:38 07/05/23 02:28 07/05/23 02:00 07/05/23 02:28 07/05/23 02:25 Notes Pain Intensity: 5 Dilatation (cm): 4.0 Effacement (%): 60 Called by nursing to evaluate epidural as the patient is having increased pain. The epidural was re-dosed with the following medications after negative aspiration of the epidural catheter for CSF/HEME. 3mL of 0.25% Bupivacaine and 50 mcg fentanyl After Epidural Re-Dose Mental Status: alert / awake / arousable Pain: improving with treatment Airway Patency, RR, SpO2: stable & adequate BP & HR: stable & adequate
[2023-07-05] MEDS ORDERED: NURSING L&D Epidural Breakthrough Pain Update ONE (02:46)
--- NOTE | 2023-07-05 07:32 | Delivery Summary ---
Vaginal Delivery Summary Date of Service July 05, 2023 Vaginal Delivery Summary [facility] PREOPERATIVE DIAGNOSIS: 1. Single intrauterine at 39 6/7 wga 2. Labor 3. GBS+ 4. AMA POSTOPERATIVE DIAGNOSIS: 1. Single intrauterine at 39 6/7 wga 2. Labor 3. GBS+ 4. AMA 5. Delivered PROCEDURE: 1. Normal spontaneous vaginal delivery. SURGEON: Kerry Colon MD ANESTHESIA: Epidural. ESTIMATED BLOOD LOSS: 300 mL FLUIDS: Continuous LR. URINE OUTPUT: None. COMPLICATIONS: None. CONDITION: Stable. INDICATIONS: 38 yo at 39 6/7 wga presented last evening in labor. She received penicillin for GBS+ status and epidural for pain control. She continued to progress spontaneously and underwent arom and desired to push FINDINGS: A viable female , weight pending with Apgars of 9 and 9 at 1 and 5 minutes respectively. SPECIMEN: Cord blood OPERATIVE REPORT: The patient progressed to 10 cm, 100% effaced and +2 station, pushed over intact perineum with anesthesia to deliver a viable female , weight and Apgars as above. Head of delivered in NEREIDA position. No nuchal cord was present. Body and shoulders were delivered without difficulty. was delivered to maternal abdomen and nursing staff. Delayed cord clamping was performed for 60 seconds. Cord was clamped and cut. Cord blood was obtained. Placenta delivered spontaneously intact with 3-vessel cord. IV oxytocin and fundal massage were given for excellent hemostasis. Vagina, cervix, perineum, and placenta were inspected. A small hemostatic periclitoral abrasion was noted and did not need to be repaired. Sponge and needle counts correct x2. No sponges were left behind. Mother and stable in immediate period. [facility] Vaginal Delivery Charge Vaginal Delivery Codes: 27831 global code for the antepartum, delivery, and post- Delivery Type Details: [facility]
[2023-07-05] MEDS ORDERED: bisacodyL 10 MG SUPP PR PRN (07:35)
[2023-07-05] MEDS ORDERED: BENZOCAINE 20% SPRY 85 APPLN/85 GM CAN EXT PRN (07:35)
[2023-07-05] MEDS ORDERED: ACETAMINOPHEN 325 MG TAB PO PRN (07:35)
[2023-07-05] MEDS ORDERED: HYDROCORTISONE ACETATE 25 MG SUPP PR PRN (07:35)
[2023-07-05] MEDS ORDERED: OXYTOCIN 30 UNITS/500 ML BAG IV PRN (07:35)
[2023-07-05] MEDS: FERROUS SULFATE 325 MG TAB PO SCH (08:23)
[2023-07-05] MEDS: DOCUSATE SODIUM 100 MG CAP PO SCH ×2 (08:23→21:43)
[2023-07-05] MEDS: PRENATAL VITAMIN 1 TAB PO SCH (08:23)
--- NOTE | 2023-07-05 08:23 | Anesthesia Procedure Note ---
Date of Service July 05, 2023 Anesthesia Post Epidural Note Vital Signs Vital Signs: Temp Pulse Resp BP Pulse Ox 36.6 C 75 16 114/54 L 98 07/05/23 07:15 07/05/23 08:18 07/05/23 08:00 07/05/23 08:18 07/05/23 07:00 Notes Mental Status: alert / awake / arousable Nausea / Vomiting: adequately controlled Pain: adequately controlled Airway Patency, RR, SpO2: stable & adequate BP & HR: stable & adequate Hydration State: stable & adequate Neuraxial Anesthesia: was administered and sensory block is resolving Anesthetic Complications: no major complications apparent and Pt Satisfied with anesthetic care Epidural: Removed without complications and With tip intact
[2023-07-05] MEDS: IBUPROFEN 600 MG TAB PO PRN ×3 (11:53→21:43)
--- NOTE | 2023-07-05 14:22 | Communication Note ---
Date of Service: July 05, 2023 Called to evaluate patient for persistent weakness after epidural. Patient states she is unable to bear weight on her right leg since delivery. On exam, she has intact sensory bilaterally. Left leg has good strength throughout. Right leg has mild weakness in flexion at the hip and moderate weakness in extension at the knee. No weakness in the ankle. This is consistent with stretch injury to the femoral nerve from delivery, not consistent with a cord injury. Reassured patient, and suggested to use extra help when moving out of bed until this improves. If she needs additional assistance, a walker could be used temporarily until her strength returns.
--- NOTE | 2023-07-06 06:46 | Obstetrical Progress Note ---
Date of Service <Dolores Garcia MD - Last Filed: 07/06/23 08:20> July 06, 2023 Assessment & Plan <Dolores Garcia MD - Last Filed: 07/06/23 08:20> (1) Encounter for assessment: Plan Patient with the above mentioned history and findings was evaluated at bedside and found awake, alert, oriented in all spheres, afebrile, and in no acute distress. Vital signs showed no fever and blood pressures remained stable. Her blood type is O negative (s/p pp Rhogam on 07/05/23) and most recent hemoglobin is adequate at 12.3 g/dL. She is GBS positive treated intrapartum and rubella immune. Overall, patient is doing well clinically and meeting the desired milestones. Since she is clinically and hemodynamically stable, will discharge today. she was counseled to make an appointment with her OB in 6 weeks for her routine pp evaluation. Discharge instructions discussed. All questions answered. <Sandy Gillis DO - Last Filed: 07/06/23 08:56> (1) Encounter for assessment: Subjective <Dolores Garcia MD - Last Filed: 07/06/23 08:20> Isha is a 38 y/o female who is now PPD # 1 following at 39 5/7 weeks. Reports feeling well overall this morning. Refers mild abdominal cramping & 3/10 pain well managed on analgesics. Voiding spontaneously. Has passed flatus but no bowel movements yet. Tolerating meals overnight and able to ambulate some. Some persistent lochia with some improvement this morning. . Constitutional: no fever, no chills or no sweats Denies shortness of breath or difficulty breathing Cardiovascular: no chest pain or no palpitations Breast: no breast pain Genitourinary (female): no dysuria Neurologic: no headache(s) Denies changes in vision Physical Exam <Dolores Garcia MD - Last Filed: 07/06/23 08:20> General: Alert. Oriented to person, time, and place. Afebrile. No acute distress. Eyes: pupils equal and reactive to light bilaterally, extraocular movements intact. Cardiac: Regular rate and rhythm, no murmurs/rubs/gallops. Respiratory: No increased work of breathing. Symmetrical chest rise. No respiratory distress. Abdomen: Soft, nontender, nondistended. Bowel sounds present. Uterus: Uterine fundus firm, non-tender, and palpable at umbilicus. Lower Extremities: No lower extremity edema or swelling. No deep calf pain. Desiree's negative bilaterally. Psych: Euthymic affect. Mood and affect congruence. Regular speech rate and content. Results & Data <Dolores Garcia MD - Last Filed: 07/06/23 08:20> Vital Signs (Past 12 Hours) Vital Signs Temp Pulse Resp BP Pulse Ox O2 Del Method 07/06/23 04:01 36.5 C 70 18 93/56 L 98 Room Air 07/05/23 22:56 36.6 C 82 18 102/66 98 Room Air 07/05/23 19:04 36.5 C 75 18 111/66 97 Room Air Supervising Physician <Sandy Gillis DO - Last Filed: 07/06/23 08:56> Co-Signing Physician Notes Resident Physician Supervision Note: I was present with Dr. Garcia during the history and exam. I discussed the case with the resident and agree with the findings and plan as documented in the note. Any exceptions or clarifications are listed here: PPD#1 doing well, desires DC. Reviewed instructions. Documented By: Sandy Gillis DO Resident Activity Tracking <Dolores Garcia MD - Last Filed: 07/06/23 08:20> Resident Involvement: Resident Care Provided Care Provided: OB Delivery
[2023-07-06] MEDS: PRENATAL VITAMIN 1 TAB PO SCH (08:43)
[2023-07-06] MEDS: DOCUSATE SODIUM 100 MG CAP PO SCH (08:43)
[2023-07-06] MEDS: FERROUS SULFATE 325 MG TAB PO SCH (08:43)
[2023-07-06] MEDS: IBUPROFEN 600 MG TAB PO PRN (08:43)
[2023-07-06] MEDS ORDERED: DIPHTHERIA/TETANUS/PERTUSSIS Vaccine (Tdap, Age 7+yrs) 0.5mL SYR/VL IM ONE (09:00)
[2023-07-06] MEDS ORDERED: bisacodyL 5 MG TABEC PO SCH (20:00)
== END 2023-07-06 11:15 | disposition home or self-care (01) | DRG 807 ==
LOC: OPB 21:11 → 4S1 21:13 → 4E2 07-05 10:28